=== PATIENT | female | born 1990 | race Caucasian/White ===

== ENCOUNTER 2019-09-21 21:37 | Inpatient (IN) ==
[2019-09-21 22:13] LABS: URINE SOURCE VOIDED
[2019-09-21 23:25] LABS: BILIRUBIN URINE NEGATIVE (NEGATIVE); BLOOD URINE NEGATIVE (NEGATIVE); COLOR YELLOW; GLUCOSE URINE 200 mg/dL (NEGATIVE); KETONE URINE NEGATIVE (NEGATIVE); LEUKOCYTES URINE MODERATE (NEGATIVE); NITRITE URINE NEGATIVE (NEGATIVE); PROTEIN URINE TRACE mg/dL (NEGATIVE); TURBIDITY URINE CLEAR (CLEAR); UROBILINOGEN URINE NORMAL (NORMAL)
[2019-09-22] MEDS ORDERED: ZOFRAN IV PRN (00:08)
[2019-09-22] MEDS ORDERED: PEPCID PO PRN (00:08)
[2019-09-22] MEDS ORDERED: REGLAN PO ONE (00:08)
[2019-09-22] MEDS ORDERED: LR 500 ML IV ONE (00:08)
[2019-09-22] MEDS ORDERED: TYLENOL PO PRN (00:08)
[2019-09-22] MEDS ORDERED: PEPCID PO ONE (00:08)
[2019-09-22] MEDS ORDERED: STADOL IV PRN (00:08)
[2019-09-22] MEDS ORDERED: AMPICILLIN 2 GM in NS 100 ML IV ONE (00:08)
[2019-09-22] MEDS ORDERED: KEFZOL 1 GM/D5W 1 GM/50 ML IVPB IV PRN (00:08)
[2019-09-22] MEDS ORDERED: PEPCID IV PRN (00:08)
[2019-09-22] MEDS ORDERED: SODIUM CHLORIDE 0.9% INJ SCH (00:15)
[2019-09-22] MEDS ORDERED: LR 1,000 ML IV SCH (00:15)
[2019-09-22] MEDS ORDERED: PITOCIN 30 UNITS/NS 30 UNIT/500 ML IV.SOLN IV SCH ×2 (00:15→07:30)
[2019-09-22 00:35] LABS: BASO# 0.02 X1000 (0.0-0.2); BASO% 0.1 % (0.0-0.8); EOS# 0.18 X1000 (0.0-0.7); EOS% 1.3 % (0.0-10.0); HEMATOCRIT 28.7 % (37.0-47.0); HEMOGLOBIN 9.4 g/dL (12.0-16.0); IMM GRAN# 0.17 X1000 (0.0-0.04); IMM GRAN% 1.2 % (0.0-0.5); LYMPH# 1.64 X1000 (1.2-3.4); LYMPH% 11.9 % (20.5-51.1); MCH 31.2 PG (27-31); MCHC 32.8 g/dL (33-37); MCV 95.3 FL (81-99); MONO# 1.22 X1000 (0.11-0.59); MONO% 8.9 % (1.7-9.3); MPV 10.8 FL (7.4-10.4); NEUT# 10.55 X1000 (1.4-6.5); NEUT% 76.6 % (42.2-75.2); PLT 375 X1000 (130-400); RBC 3.01 XMIL (4.2-5.4); RDW 14.4 % (11.5-14.5); WBC 13.78 X1000 (4.8-10.8)
[2019-09-22 01:00] LABS: HEMOGLOBIN A1C 4.6 % (4.8-6.0)
[2019-09-22] MEDS ORDERED: FENTANYL IV ONE (03:25)
[2019-09-22] MEDS ORDERED: SODIUM CHLORIDE 0.9% INJ ONE (03:25)
[2019-09-22] MEDS ORDERED: NEO-SYNEPHRINE IV ONE (03:25)
[2019-09-22] MEDS ORDERED: NAROPIN 0.2% INJ ONE (03:25)
[2019-09-22] MEDS ORDERED: FENTANYL-BUPIV-NS 500 MCG-0.125% 250 ML EPIDURAL SCH (04:00)
[2019-09-22] MEDS ORDERED: AMPICILLIN 1 GM in NS 50 ML IV SCH (04:09)
--- NOTE | 2019-09-22 04:38 | HISTORY AND PHYSICAL ---
ADMITTING PHYSICIAN: Carlton Eldridge DO CHIEF COMPLAINT: Leaking fluid. HISTORY OF PRESENT STAY: A 28-year-old G1, P0 at 35 weeks and 5 days by T3 ultrasound presented to labor and delivery with complaint of leaking fluid. She states leaking fluid started at approximately 8:00 in the evening tonight and is clear in nature. She denies feeling any contractions. Currently, she denies any vaginal bleeding. She endorses movement. She has had no care this , and is dated by an ultrasound performed at 33 weeks in the emergency room with an estimated due date of 10/21/2019. She states that she went to [facility] in July of 2019, and was given a due date of 10/13. Her GBS status is unknown. REVIEW OF SYSTEMS: Negative except as mentioned in the HPI. OBSTETRIC HISTORY: G1 is current complicated by no care. GYNECOLOGIC HISTORY: She denies any history of sexually transmitted infections. She is unsure of her last Pap smear, but she denies any history of abnormal Pap smears. PAST MEDICAL HISTORY: Tobacco abuse. MEDICATIONS: vitamin p.o. daily. ALLERGIES: No known drug allergies. PAST SURGICAL HISTORY: Denies. SOCIAL HISTORY: She smokes half a pack per day. She denies any alcohol or drug use. FAMILY HISTORY: Denies. PHYSICAL EXAMINATION: VITAL SIGNS: Temperature 97.2 degrees, blood pressure 107/66, pulse 102, O2 sat 100% on room air, respiratory rate 18, heart tracing 130/moderate/positive accelerations/occasional variable decelerations. Tocometer q.2 to 3 minute. GENERAL: Alert. Appears well in no acute distress. HEART: Regular rate and rhythm. LUNGS: Clear to auscultation bilaterally. No respiratory distress. ABDOMEN: Soft. Gravid. Nontender. SPECULUM EXAM: Gross pooling on speculum exam, unable to visualize cervix due to leaking fluid. PELVIC: Sterile vaginal exam 2/50/-3/soft and posterior. EXTREMITIES: No clubbing, cyanosis, or edema. DIAGNOSTIC: Bedside ultrasound vertex presentation. LABORATORY DATA: Urinalysis trace protein, 200 of glucose, moderate leukocyte esterase. membrane rupture positive. lab work: RPR negative. Rubella immune. HIV nonreactive. Hepatitis B nonreactive. Urine gonorrhea and chlamydia negative on 09/05. Blood type O positive. ASSESSMENT AND PLAN: A 28-year-old G1, P0 at 35 weeks and 5 days by T3 ]ultrasound presents with rupture of membranes. No care, and tobacco abuse. 1. Will admit to Labor and Delivery. Maternal status is stable. 2. Will treat GBS unknown status with ampicillin. 3. Will augment labor with Pitocin given confirmed rupture of membranes. Discussed with patient that the infant may have symptoms of prematurity after delivery, and may require transfer to NICU in [place]. 4. Continuous external monitoring and tocometer. 5. Anticipate vaginal delivery. 6. We will get social service consult for no care. 7. Discussed risks of due to maternal or indications. She voiced understanding. Consents signed. SOCR[facility]
[2019-09-22 06:44] LABS: UR AMPHETAMINES QUAL NONE DETECTED (NONE DETECT); UR BARBITUATES QUAL NONE DETECTED (NONE DETECT); UR BENZODIAZEPIN QUAL NONE DETECTED (NONE DETECT); UR CANNABINOIDS QUAL NONE DETECTED (NONE DETECT); UR COCAINE QUAL NONE DETECTED (NONE DETECT); UR METHADONE QUAL NONE DETECTED (NONE DETECT); UR OPIATES QUAL NONE DETECTED (NONE DETECT); UR OXYCODONE QUAL NONE DETECTED (NONE DETECT); UR PCP QUAL NONE DETECTED (NONE DETECT)
[2019-09-22] MEDS ORDERED: PERI MEDS (DERMOPLAST/NUPERCAINAL/TUCKS) MISC PRN (07:22)
[2019-09-22] MEDS ORDERED: M-M-R II VACCINE SUBQ ONE (07:22)
[2019-09-22] MEDS ORDERED: MOTRIN PO PRN (07:22)
[2019-09-22] MEDS ORDERED: HYDROXYZINE IM PRN (07:22)
[2019-09-22] MEDS ORDERED: PITOCIN IM PRN (07:22)
[2019-09-22] MEDS ORDERED: XYLOCAINE-MPF 1% INJ PRN (07:22)
[2019-09-22] MEDS ORDERED: PERCOCET-5 PO PRN (07:22)
[2019-09-22] MEDS ORDERED: PERCOCET-10 PO PRN (07:22)
[2019-09-22] MEDS ORDERED: MINERAL OIL PO PRN (07:22)
[2019-09-22] MEDS ORDERED: BOOSTRIX VACCINE IM ONE (07:22)
[2019-09-22] MEDS ORDERED: BENADRYL IV PRN (07:22)
[2019-09-22] MEDS ORDERED: CYTOTEC PO PRN (07:22)
[2019-09-22] MEDS ORDERED: ATARAX PO PRN (07:22)
[2019-09-22] MEDS ORDERED: BENADRYL PO PRN (07:22)
[2019-09-22] MEDS ORDERED: AMBIEN PO PRN (07:22)
[2019-09-22] MEDS ORDERED: PITOCIN 20 UNITS/NS 20 UNITS/1,000 ML IV.SOLN IV SCH (07:30)
--- NOTE | 2019-09-22 08:00 | OPERATIVE NOTE ---
PROCEDURE DATE: 09/21/2019 PROCEDURE: Spontaneous vaginal delivery. PROCEDURE IN DETAIL: The patient is a 28-year-old 1 at 35 weeks 6 days who presented last night with a complaint of rupture of membranes, and she had no care this . She was admitted to Labor and Delivery, and labor was augmented with Pitocin. She underwent a spontaneous vaginal delivery of a vigorous viable female infant, scores of 8 and 10. delivered in LEON presentation. Infant's head, shoulders, and body delivered without difficulty with maternal expulsion effort. Placenta delivered spontaneous, intact with a 3-vessel cord. She had a first-degree midline perineal laceration that was repaired with 3-0 Vicryl in the usual fashion. A [id number] suture was also used on the left vaginal sidewall for hemostasis of a small laceration. ANESTHESIA: Epidural. ESTIMATED BLOOD LOSS: 200 mL. Pediatric nurse in attendance. Mom stable to recovery room. [facility]
[2019-09-23] MEDS: PERICOLACE PO SCH ×2 (00:37→20:19)
[2019-09-23 06:08] LABS: BASO# 0.01 X1000 (0.0-0.2); BASO% 0.1 % (0.0-0.8); EOS# 0.12 X1000 (0.0-0.7); EOS% 0.8 % (0.0-10.0); HEMATOCRIT 27.3 % (37.0-47.0); HEMOGLOBIN 8.7 g/dL (12.0-16.0); IMM GRAN# 0.08 X1000 (0.0-0.04); IMM GRAN% 0.5 % (0.0-0.5); LYMPH# 1.87 X1000 (1.2-3.4); LYMPH% 12.5 % (20.5-51.1); MCH 31.2 PG (27-31); MCHC 31.9 g/dL (33-37); MCV 97.8 FL (81-99); MONO# 1.03 X1000 (0.11-0.59); MONO% 6.9 % (1.7-9.3); MPV 10.5 FL (7.4-10.4); NEUT# 11.91 X1000 (1.4-6.5); NEUT% 79.2 % (42.2-75.2); PLT 329 X1000 (130-400); RBC 2.79 XMIL (4.2-5.4); RDW 14.7 % (11.5-14.5); WBC 15.02 X1000 (4.8-10.8)
--- NOTE | 2019-09-23 10:41 | OB/GYN PROGRESS NOTE ---
- Subjective Patient without complaints OB Physical Exam Vital Signs - 8 hr 09/23/19 08:00 Temperature 97.2 F L Pulse Rate 79 Respiratory Rate 20 Blood Pressure 96/64 O2 Sat by Pulse Oximetry 98 - CONSTITUTIONAL General Appearance: appears well - HEAD, EARS, NOSE, MOUTH & THROAT HENMT: normocephalic/atraumatic - CARDIOVASCULAR Cardiovascular: normal peripheral pulses - GASTROINTESTINAL (ABDOMEN) Abdominal Exam: normal bowel sounds - PSYCHIATRIC Psych/Mental Status: normal mood/affect Active Medications Generic Name Dose Route Start Last Admin Trade Name Freq PRN Reason Stop Dose Admin Acetaminophen 650 mg 09/22/19 00:08 09/23/19 10:07 Tylenol PO 650 mg Q4-6H PRN PRN Administration Headache Benzocaine 1 each 09/22/19 07:22 09/22/19 08:56 Jacquie Meds (Dermoplast/Nupercainal/Tucks) MISC 1 applic 3-4XDAY PRN PRN Administration episiotomy/hemorrhoids Butorphanol Tartrate 2 mg 09/22/19 00:08 Stadol IV PRN PRN Pain Diphenhydramine HCl 12.5 mg 09/22/19 07:22 Benadryl IV Q4H PRN PRN Itching Diphenhydramine HCl 25 mg 09/22/19 07:22 Benadryl PO Q4H PRN PRN Itching Famotidine 40 mg 09/22/19 00:08 Pepcid PO Q12H PRN PRN GI upset or indigestion Famotidine 20 mg 09/22/19 00:08 09/22/19 02:30 Pepcid IV 20 mg Q12H PRN PRN Administration GI upset or indigestion Hydroxyzine HCl 50 mg 09/22/19 07:22 Atarax PO Q3-4H PRN PRN Nausea Hydroxyzine HCl 50 mg 09/22/19 07:22 Hydroxyzine IM Q3-4H PRN PRN Nausea Cefazolin Sodium/Dextrose 1 gm in 50 mls @ 100 mls/hr 09/22/19 00:08 Kefzol 1 Gm/D5w IV ONCE PRN PRN SECTION Fentanyl/Bupivacaine/Sodium Chlor 250 mls @ 0 mls/hr 09/22/19 04:00 09/22/19 05:47 Ocizdngt-Wsikj-Wt 500 Mcg-0.125% EPIDURAL 12 mls/hr DIRECTED CAITLIN Administration As Directed Oxytocin/Sodium Chloride 20 units in 1,000 mls @ 0 mls/hr 09/22/19 07:30 Pitocin 20 Units/Ns IV .Q0M CAITLIN As Directed Ibuprofen 800 mg 09/22/19 07:22 Motrin PO Q8H PRN PRN cramping Lidocaine HCl 30 ml 09/22/19 07:22 Xylocaine-Mpf 1% INJ PRN PRN Perineal repair Mineral Oil 30 ml 09/22/19 07:22 Mineral Oil PO PRN PRN Perineal massage Misoprostol 800 microgm 09/22/19 07:22 Cytotec PO PRN PRN Severe bleeding Ondansetron HCl 4 mg 09/22/19 00:08 09/22/19 02:30 Zofran IV 4 mg PRN PRN Administration Nausea Oxycodone/Acetaminophen 1 each 09/22/19 07:22 Percocet-10 PO Q3-4H PRN PRN Pain (7-10 on Pain Scale) Oxycodone/Acetaminophen 1 each 09/22/19 07:22 Percocet-5 PO Q3-4H PRN PRN Pain (1-6 on Pain Scale) Oxytocin 20 unit 09/22/19 07:22 Pitocin IM PRN PRN Severe bleeding Senna/Docusate Sodium 1 each 09/22/19 21:00 09/23/19 00:37 Pericolace PO Not Given QHS CAITLIN Sodium Chloride 5 - 10 ml 09/22/19 00:15 Sodium Chloride 0.9% INJ DIRECTED CAITLIN Zolpidem Tartrate 10 mg 09/22/19 07:22 Ambien PO HS PRN PRN Sleep Laboratory Results - last 24 hr 09/23/19 05:26 WBC 15.02 H RBC 2.79 L Hgb 8.7 L Hct 27.3 L MCV 97.8 MCH 31.2 H MCHC 31.9 L RDW Std Deviation 14.7 H Plt Count 329 MPV 10.5 H Immature Gran % (Auto) 0.5 Neut % (Auto) 79.2 H Lymph % (Auto) 12.5 L Vernon % (Auto) 6.9 Eos % (Auto) 0.8 Baso % (Auto) 0.1 Immature Gran # (Auto) 0.08 H Neut # (Auto) 11.91 H Lymph # (Auto) 1.87 Vernon # (Auto) 1.03 H Eos # (Auto) 0.12 Baso # (Auto) 0.01
[2019-09-23] MEDS ORDERED: FLU VACCINE IM ONE (16:45)
[2019-09-24 09:27] VITALS: BP 99/59
--- NOTE | 2019-09-25 07:43 | DISCHARGE SUMMARY ---
ADMISSION DATE: 09/21/2019 DISCHARGE DATE: 09/24/2019 HOSPITAL COURSE: She is a 28-year-old, 1, para 0, with ruptured membranes at approximately 35 weeks with no care. She delivered spontaneously of a living female child on September 22. The infant has done well. The patient's course was totally unremarkable. Her lab work revealed a hematocrit is 28.7 on admission and on discharge 27.3. Her urine was negative. Her RPR was nonreactive, with a negative urine drug screen. The patient's blood type was O positive. The patient had an unremarkable past medical history. No previous surgeries. She was discharged in excellent condition. She was voiding well with no symptoms of hypovolemia. She will have followup in the office in approximately 4 to 6 weeks. She knows to refrain from heavy lifting or intercourse until okayed by provider. She verbalized understanding of all discharge instructions and all questions were answered. [facility]
== END 2019-09-24 15:16 | disposition home or self-care (01) | DRG 805 ==
LOC: OPLD 21:37 → LD 21:38
PROVIDERS: ADMIT Student in an Organized Health Care Education/Training Program; ATTEND Student in an Organized Health Care Education/Training Program